=== PATIENT | male | born 2000 | race Caucasian/White ===

== ENCOUNTER 2021-02-02 19:55 | Emergency (ER) | payer SELFPAY ==
[~2021-02-02] VITALS: Ht 172.7 cm; Wt 68.0 kg
[2021-02-02 20:01] VITALS: BP 128/74
== END 2021-02-02 20:37 | disposition left against medical advice (07) ==
LOC: ER 19:55
DX: Z53.21 Procedure and treatment not carried out due to patient leaving prior to being seen by health care provider (principal)